=== PATIENT | female | born 1990 | race Caucasian/White ===

== ENCOUNTER 2016-04-17 18:37 | Emergency (ER) | payer SELFPAY ==
--- NOTE | ~2016-04-17 | CR142 ---
[facility]. [facility] A Service of [facility] & [facility] RADIOLOGY TEXT RESULTS PATIENT: DIANNE HOLLOWAY LOCATION: SED : [birth year] UNIT #: [id number] AGE: [address]: Leny Mabry APRN SEX: F ORDER DR: [id number] [address] [address] [id number] E MR#: [id number] Acc #: [id number] NAME: DIANNE HOLLOWAY : 1990 SEX: F STUDY DATE/TIME: 04/17/2016 18:12 UNIT: SED ROOM: STUDY DESCRIPTION: CR Hand Min 3 Views Rt Attending Physician: Leny Mabry A.P.R.N. Ordering Physician: Leny Mabry A.P.R.N. Primary Care Physician: Primary Care Physician No MEDICAL IMAGING REPORT This report is preliminary unless electronic signature is present. EXAM Right hand series dated 04/17/2016. HISTORY Twisted right hand last night, hurts the thumb. FINDINGS 3 views of the right hand were obtained. No acute displaced fracture or dislocation. There is a negative ulnar variance, with the distal aspect of the ulna at a lower level than the distal aspect of the radius. No destructive bony mass. Surrounding soft tissues are grossly unremarkable. Dictated by... Jl Yañez M.D. THIS IS AN ELECTRONICALLY VERIFIED REPORT Jl Yañez M.D. at 04/18/2016 5:01 PM CPR/psc TD: 04/17/2016 23:06 JOB #: [id number] MEDICAL IMAGING REPORT
[~2016-04-17 18:37] MED LIST: AMOXICILLIN500 M1 PO; BACTRIM DS TABL1 TA1 PO; IMODIUM 2 MG PO; KEFLEX500 M1 PO; MACROBID 100 M100 MG PO; NO MEDICATIONS; PHENERGAN25 MG PO; POTASSIUM CL PO; PRENATAL VITAMI1 TA3 PO; PRENATAL1 TA1 PO; PRILOSEC40 MG PO; RASPBERRY PO; REGLAN PO; VOLTAREN75 MG PO; ZOFRAN ODT PO; [UNRECOGNIZED DRUG - OTHER] PO; [UNRECOGNIZED DRUG - REMARK]
== END 2016-04-17 19:16 | disposition home or self-care (01) ==
LOC: SED 18:37
DX: S63.91XA Sprain of unspecified part of right wrist and hand, initial encounter (principal); F17.200 Nicotine dependence, unspecified, uncomplicated; X50.1XXA Overexertion from prolonged static or awkward postures, initial encounter; Y92.009 Unspecified place in unspecified non-institutional (private) residence as the place of occurrence of the external cause
CPT/HCPCS: 29125; 73130; 99283